=== PATIENT | female | born 1955 ===

== ENCOUNTER → 2018-03-23 | Outpatient (CLI) | payer MEDICARE, OTHER ==
[~2018-03-23] MED LIST: ALBIPROI; ALBU90OI; AMIT50; BENZ100A PO; CIPR500 PO; DIAZ5; FLUSAL2505; FOSI10; FURO40; HYDACE5; HYDACE5 PO; HYDMOR4 PO; INS70/30I; INSR10I; LEVFLO500 PO; LEVSOD100; LOVA40; MONT10T; OMEP20ER; POTCHL20ER; PRED20 PO; PROCODE120 PO; PROM25; RANI150; SENNP; [UNRECOGNIZED DRUG - REMARK]
[2018-03-25 15:08] LABS: HPV 16 Negative (Negative); HPV 18 Negative (Negative); HPV OTHER HR TYPES Negative (Negative)
== END | disposition home or self-care (01) ==
LOC: LAB 16:04 → LAB SHORT 16:04
PROVIDERS: Obstetrics & Gynecology Gynecology
DX: Z91.89 Other specified personal risk factors, not elsewhere classified (principal)
CPT/HCPCS: 87624; G0123